=== PATIENT | female | born 1950 | race African-American/Black ===

== ENCOUNTER 2018-11-16 15:43 | Observation (INO) | payer MEDICARE ==
[2018-11-16] VITALS (70 sets, daily range): BP systolic 174; BP diastolic 106; PULSE 64–69; TEMP 98.9; O2SAT 95–100
[~2018-11-16] VITALS: Ht 162.6 cm; Wt 96.4 kg
[2018-11-16 16:43] LABS: BASO % 0.4 % (0.0-2.0); EOS % 0.5 % (0-4.0); GRAN # 4.3 (1.4-6.5); GRAN % 57.5 % (42.2-75.2); HEMOGLOBIN 11.5 g/dl (12.5-16.0); LYMPH # 2.5 (1.2-3.4); LYMPH % 32.9 % (20.0-51.0); MEAN CELL VOLUME 81 fl (80.0-100.0); MEAN CORPUSCULAR HEMOGLOBIN 27 pg (27.0-31.0); MEAN CORPUSCULAR HGB CONC 34 g/dl (33.0-37.0); MEAN PLATELET VOLUME 9.2 fl (7.4-10.4); MONO # 0.7 (0.1-0.6); MONO % 8.6 % (1.7-9.3); PLATELET COUNT 249 K/mm3 (130-400); REDCELL DISTRIBUTION WIDTH-CV 16.4 % (11.5-14.5)
[2018-11-16 17:00] LABS: ALBUMIN 4.3 gm/dL (3.5-5.0); BILIRUBIN,TOTAL 0.7 mg/dL (0.0-1.0); CALCIUM 9.9 mg/dL (8.4-10.2); CREATININE, serum 1.11 (0.52-1.25); POTASSIUM 3.6 mmol/L (3.4-5.0)
[2018-11-16 17:12] LABS: TROPONIN-I 0.257 ng/mL (0.000-0.035)
[2018-11-16] MEDS ORDERED: ASPIRIN 32325 MG/TAB PO (19:29)
[2018-11-16] MEDS ORDERED: TOPROL XL 25MG25 MG ×2 (19:30→20:14)
[2018-11-16] MEDS ORDERED: COZAAR 50MG50 MG/TAB PO (20:14)
[2018-11-16] MEDS ORDERED: LIPITOR 80MG80 MG PO (20:15)
[2018-11-16] MEDS ORDERED: NITROSTAT0.4 MG/TAB SL (20:16)
[2018-11-16] MEDS ORDERED: HYZAAR 50-12.1 UDTAB PO (21:43)
[2018-11-16] MEDS ORDERED: LOPRESSOR 225 MG/TAB PO (21:44)
[2018-11-16 22:20] LABS: MAGNESIUM 1.8 mg/dL (1.6-2.3)
[2018-11-16 22:41] LABS: INR 1.1 (0.8-3.0); PROTHROMBIN TIME 12.5 SECONDS (9.7-12.8)
[2018-11-16 22:44] LABS: PARTIAL THROMBOPLASTIN TIME 26.5 SECONDS (26.0-37.0)
[2018-11-17] VITALS (587 sets, daily range): BP systolic 96–162; BP diastolic 53–88; PULSE 60–78; TEMP 97.5–98.8; O2SAT 66–100
--- NOTE | 2018-11-17 00:30 | NUR ---
HOSPITALIST PETRA INFORMED OF PT MENTIONING NUMBNESS AND TINGLING IN BILAT HANDS INTERMITTENTLY (AND NOT BOTH HANDS SIMULTANEAOUSLY) FOR THE PAST FEW MONTHS.
[2018-11-17 06:23] LABS: BASO % 0.5 % (0.0-2.0); EOS % 0.6 % (0-4.0); GRAN # 2.9 (1.4-6.5); GRAN % 44.1 % (42.2-75.2); HEMATOCRIT 33.1 % (37.0-47.0); HEMOGLOBIN 11.1 g/dl (12.5-16.0); LYMPH # 2.9 (1.2-3.4); LYMPH % 43.8 % (20.0-51.0); MEAN CELL VOLUME 82 fl (80.0-100.0); MEAN CORPUSCULAR HEMOGLOBIN 28 pg (27.0-31.0); MEAN CORPUSCULAR HGB CONC 34 g/dl (33.0-37.0); MEAN PLATELET VOLUME 9.4 fl (7.4-10.4); MONO # 0.7 (0.1-0.6); MONO % 10.7 % (1.7-9.3); PLATELET COUNT 250 K/mm3 (130-400); RED BLOOD COUNT 4.02 M/mm3 (4.10-5.30); REDCELL DISTRIBUTION WIDTH-CV 16.3 % (11.5-14.5)
[2018-11-17 06:26] LABS: ALBUMIN 3.9 gm/dL (3.5-5.0); BILIRUBIN,TOTAL 0.7 mg/dL (0.0-1.0); CALCIUM 9.2 mg/dL (8.4-10.2); CHOLESTEROL RISK RATIO 4.8; CREATININE, serum 0.86 (0.52-1.25); POTASSIUM 4.3 mmol/L (3.4-5.0); TOTAL PROTEIN 7.3 gm/dL (6.4-8.2)
[2018-11-17 06:37] LABS: TROPONIN-I 1.05 ng/mL (0.000-0.035)
--- NOTE | 2018-11-17 07:27 | NUR ---
DR TATE PRESENT TO SEE PATIENT. TOY MECHANIC PRESENT TO PERFORM ECHOCARDIOGRAM.
--- NOTE | 2018-11-17 07:30 | NUR ---
REPORT RECEIVED FROM PATRICE CHAVEZ. CARE ASSUMED.
--- NOTE | 2018-11-17 08:59 | NUR ---
CALLED DR TATE TO INQUIRE ABOUT HEPARIN GTT HE MENTIONED IN HIS NOTE. PROVIDER ASKS IF MEDICAL TEAM CAN PLACE HEPARIN GTT ORDERS AND STATES THAT DR SCHNEIDER WILL LIKELY DO HEART CATH ON PATIENT LATER TODAY DR TATE IS IN CLINIC ALL DAY.
--- NOTE | 2018-11-17 10:38 | NUR ---
SW attended clinical rounds to disucuss discharge planning. Patient is from [facility] and is visiting her daughter in [place]. Patient plans to stay with her daughter after discharge until she is well enough to return to [facility]. Patient reports her PCP and prefered pharmacy is in [facility] but while she is in [place], she will use the [facility] for prescriptions. Patient reports she does not have any DME or home health services at home. Patient does have advanced directives but those forms are in [facility]. SW does not anticipate any discharge needs but will follow as needed.
[2018-11-17 10:45] LABS: PARTIAL THROMBOPLASTIN TIME 37.2 SECONDS (26.0-37.0)
--- NOTE | 2018-11-17 11:27 | NUR ---
First visit from the air export operations agent. No needs right now.
--- NOTE | 2018-11-17 13:50 | NUR ---
PT TAKEN VIA BED TO BASKET OPERATOR BY BASKET OPERATOR NURSES.
--- NOTE | 2018-11-17 14:11 | NUR ---
PLEASE SEE MERGE FOR ALL MEDICATION ADMINISTRATION TIMES ,RASS ASSESSMENT DURING AND POST PROCEDURE.
--- NOTE | 2018-11-17 15:10 | NUR ---
REPORT RECIEVED FROM CLAIRE CAHVEZ IN CUSTOMER ACCOUNT COORDINATOR. PROX LAD BALLOON AND STENTED. PT RECEIVED 600MG PLAVIX AND WAS BOLUSED WITH HEPARIN PER CLAIRE IN CUSTOMER ACCOUNT COORDINATOR. PT HAS ANGIOSEAL TO RIGHT GROIN. PT ALSO RECIEVED 1MG VERSED AND 50MCG FENTANYL.
--- NOTE | 2018-11-17 15:13 | NUR ---
PT RETURNED VIA BED FROM COLOR CONTROL OPERATOR. PT AWAKE AND ORIENTED. PT DENIES ANY COMPLAINTS AT THIS TIME. PT HAS SLIGHT AMT OF DRAINAGE TO RIGHT FEMORAL DRESSING. SAFEGUARD DEVICE IN PLACE. NO S/S OF HEMATOMA. WILL CONTINUE TO MONITOR.
--- NOTE | 2018-11-17 18:39 | NUR ---
PT'S FLAT TIME COMPLETE.
[2018-11-18] VITALS (495 sets, daily range): BP systolic 100–143; BP diastolic 54–85; PULSE 64–102; TEMP 98.2–98.8; O2SAT 74–100
[2018-11-18 05:59] LABS: BASO % 0.5 % (0.0-2.0); EOS # 0.1 (0.0-0.7); EOS % 0.8 % (0-4.0); GRAN # 4.4 (1.4-6.5); GRAN % 59.7 % (42.2-75.2); HEMATOCRIT 34.7 % (37.0-47.0); HEMOGLOBIN 11.4 g/dl (12.5-16.0); LYMPH # 2.1 (1.2-3.4); LYMPH % 28.8 % (20.0-51.0); MEAN CELL VOLUME 83 fl (80.0-100.0); MEAN CORPUSCULAR HEMOGLOBIN 27 pg (27.0-31.0); MEAN CORPUSCULAR HGB CONC 33 g/dl (33.0-37.0); MEAN PLATELET VOLUME 9.4 fl (7.4-10.4); MONO # 0.7 (0.1-0.6); MONO % 9.9 % (1.7-9.3); PLATELET COUNT 257 K/mm3 (130-400); RED BLOOD COUNT 4.18 M/mm3 (4.10-5.30); REDCELL DISTRIBUTION WIDTH-CV 16.7 % (11.5-14.5)
[2018-11-18 06:11] LABS: CALCIUM 9.8 mg/dL (8.4-10.2); CREATININE, serum 0.96 (0.52-1.25); POTASSIUM 4.4 mmol/L (3.4-5.0)
--- NOTE | 2018-11-18 07:00 | NUR ---
Bedside report received from KATHY Morales. Patient resting in bed. Groin site examined. Care assumed.
--- NOTE | 2018-11-18 07:04 | NUR ---
GAVE REPORT TO KATHY SUTHERLAND.
[2018-11-18] MEDS ORDERED: PLAVIX 75MG TAB75 MG PO (10:04)
[2018-11-18] MEDS ORDERED: ASPIRIN E.C. 8181 MG PO (10:05)
--- NOTE | 2018-11-18 11:30 | NUR ---
Discharge packet reviewed. Follow up information reviewed with patient to follow up with Dr. Crouch next week at [facility]. IV discontinued. Post cath instructions reviewed with the patient. She verbalizes understanding. Patient assisted out to patient entrance and she leaves with her daughter.
== END 2018-11-18 11:30 | disposition home or self-care (01) ==
LOC: COL.ER 15:43 → ICU 19:57
PROVIDERS: Emergency Medicine; Internal Medicine Interventional Cardiology; Nurse Practitioner Family; ADMIT Hospitalist
DX: R07.9 Chest pain, unspecified (principal); I10 Essential (primary) hypertension; E78.5 Hyperlipidemia, unspecified; I73.9 Peripheral vascular disease, unspecified; I25.10 Atherosclerotic heart disease of native coronary artery without angina pectoris; I25.2 Old myocardial infarction; Z95.5 Presence of coronary angioplasty implant and graft; Z95.1 Presence of aortocoronary bypass graft; Z96.652 Presence of left artificial knee joint; Z90.710 Acquired absence of both cervix and uterus; Z83.3 Family history of diabetes mellitus; Z82.49 Family history of ischemic heart disease and other diseases of the circulatory system; Z79.82 Long term (current) use of aspirin; I08.1 Rheumatic disorders of both mitral and tricuspid valves
CPT/HCPCS: C1725; C1760; C1769; C1874; C1887; C1894; C9600; G0378; J1644; J1650; J2250; J2270; J3010; J7030; Q9967